=== PATIENT | male | born 1990 | race Caucasian/White ===

== ENCOUNTER 2016-12-04 02:45 | Emergency (ER) | payer OTHER ==
[~2016-12-04] VITALS: Ht 172.7 cm; Wt 59.0 kg
[~2016-12-04 02:45] MED LIST: BACTRIM,SEPT1 TABLET PO; FLOMAX0.4 MG PO; NO HOME MEDS; NOHOMEMEDS; PERCOCET 5/31 TABLET PO
[2016-12-04] MEDS ORDERED: AMOXICILLIN500 MG PO (04:09)
[2016-12-04] MEDS ORDERED: NAPROSYN500 MG PO (04:09)
[2016-12-04 04:48] VITALS: BP 138/86
[2016-12-05] MEDS ORDERED: ZOFRAN ODT4 MG PO (22:30)
[2016-12-05] MEDS ORDERED: BENTYL20 MG PO (22:31)
== END 2016-12-04 04:49 | disposition home or self-care (01) ==
LOC: EME 02:45
DX: J02.9 Acute pharyngitis, unspecified (principal); K08.89 Other specified disorders of teeth and supporting structures; R21 Rash and other nonspecific skin eruption; F17.200 Nicotine dependence, unspecified, uncomplicated; Z71.6 Tobacco abuse counseling
CPT/HCPCS: 87651 90; 99281; 99283

== ENCOUNTER 2016-12-05 17:40 | Emergency (ER) | payer OTHER ==
[~2016-12-05] VITALS: Ht 172.7 cm; Wt 58.2 kg
[~2016-12-05 17:40] MED LIST changes: +AMOXICILLIN500 MG PO; +NAPROSYN500 MG PO
[2016-12-05 18:46] LABS: ADD MIUA? YES; BILIRUBIN SMALL; BLOOD SMALL; COLOR AMBER ((YELLOW)); GLUCOSE (STRIP) NEGATIVE; KETONES 5; LEUKOCYTES NEGATIVE; NITRITE NEGATIVE; PROTEIN (STRIP) 100; SPECIFIC GRAVITY 1.035 (1.000-1.030)
[2016-12-05 19:07] LABS: BACTERIA RARE /HPF; EPITHELIAL CELLS NONE SEEN /HPF; MUCUS 1+ /LPF; UCUL ADDED? NO; WHITE BLOOD CELLS NONE SEEN /HPF (0-5)
[2016-12-05 20:08] LABS: HEMATOCRIT 42.2 % (38.0-50.0); MCH 29.9 PG (29.0-34.0); MCHC 33.9 G/DL (30.0-36.0); MCV 88.1 FL (86-99); MEAN PLAT.VOLUME 9.5 uM^3 (9.0-12.4); PLATELET COUNT 150 K/uL (156-360); RBC DIS.WIDTH-CV 12.6 % (11.8-14.6); RED BLOOD COUNT 4.79 M/uL (4.00-5.50); WHITE BLOOD COUNT 12.5 K/uL (4.1-10.2)
[2016-12-05 20:23] LABS: CHLORIDE 102 mEq/L (99-109); POTASSIUM 3.2 mEq/L (3.7-5.4); SODIUM 137 mEq/L (136-147)
[2016-12-05 20:24] LABS: GLUCOSE 117 mg/dL (70-99)
[2016-12-05 20:26] LABS: ANION GAP 8 MEQ/L (2-14)
[2016-12-05 20:28] LABS: GFR ESTIMATE (CALCULATED) > 59 mL/min/
[2016-12-05 20:29] LABS: UREA NITROGEN (BUN) 14 mg/dL (9-23)
[2016-12-05 20:39] LABS: ADD MEDTOX COMMENT Y; AMPHETAMINE NEGATIVE (500 ng/mL); BARBITURATES NEGATIVE (200 ng/mL); BENZODIAZEPINES NEGATIVE (150 ng/mL); COCAINE NEGATIVE (150 ng/mL); INTERNAL CONTROLS VALID? YES; METHADONE NEGATIVE (200 ng/mL); METHAMPHETAMINE NEGATIVE (500 ng/mL); OPIATES (MORPHINE) NEGATIVE (100 ng/mL); OXYCODONE NEGATIVE (100 ng/mL); PHENCYCLIDINE PRESUMPTIVE POSITIVE (25 ng/mL); PROPOXYPHENE NEGATIVE (300 ng/mL); THC CANNABINOIDS PRESUMPTIVE POSITIVE (50 ng/mL); TRICYCLIC ANTIDEPRESSANTS NEGATIVE (300 ng/mL)
[2016-12-05] MEDS ORDERED: ZOFRAN ODT4 MG PO (22:30)
[2016-12-05] MEDS ORDERED: BENTYL20 MG PO (22:31)
[2016-12-05 22:56] VITALS: BP 135/88
== END 2016-12-05 22:56 | disposition home or self-care (01) ==
LOC: EME 17:40
DX: R11.2 Nausea with vomiting, unspecified (principal); E86.0 Dehydration; R10.30 Lower abdominal pain, unspecified; L23.7 Allergic contact dermatitis due to plants, except food; K04.7 Periapical abscess without sinus; F12.90 Cannabis use, unspecified, uncomplicated; F16.90 Hallucinogen use, unspecified, uncomplicated; F17.200 Nicotine dependence, unspecified, uncomplicated; Z87.442 Personal history of urinary calculi
CPT/HCPCS: 80048; 81003; 84999; 85027; 87651 90; 99281; 99285; J2405; J7030

== ENCOUNTER 2017-01-04 17:29 | Emergency (ER) | payer OTHER ==
[~2017-01-04] VITALS: Ht 172.7 cm; Wt 54.7 kg
[~2017-01-04 17:29] MED LIST changes: +BENTYL20 MG PO; +ZOFRAN ODT4 MG PO
[2017-01-04 19:07] LABS: HEMATOCRIT 41.2 % (38.0-50.0); MCH 30.3 PG (29.0-34.0); MCV 86.7 FL (86-99); MEAN PLAT.VOLUME 9.6 uM^3 (9.0-12.4); PLATELET COUNT 168 K/uL (156-360); RBC DIS.WIDTH-CV 13.1 % (11.8-14.6); RBC DIS.WIDTH-SD 41.3 % (39-53); RED BLOOD COUNT 4.75 M/uL (4.00-5.50); WHITE BLOOD COUNT 6.7 K/uL (4.1-10.2)
[2017-01-04 19:15] LABS: CHLORIDE 106 mEq/L (99-109); POTASSIUM 3.3 mEq/L (3.7-5.4); SODIUM 140 mEq/L (136-147)
[2017-01-04 19:17] LABS: GLUCOSE 98 mg/dL (70-99)
[2017-01-04 19:18] LABS: ANION GAP 9 MEQ/L (2-14)
[2017-01-04 19:20] LABS: SERUM ETHYL ALCOHOL < 10 mg/dL
[2017-01-04 19:21] LABS: GFR ESTIMATE (CALCULATED) > 59 mL/min/
[2017-01-04 19:22] LABS: UREA NITROGEN (BUN) 10 mg/dL (9-23)
[2017-01-04 19:24] LABS: CREATINE KINASE 838 IU/L (1-294); TOTAL CK 838 IU/L (1-294)
[2017-01-04 19:30] LABS: CK-MB 5.6 ng/mL (0.0-4.9)
[2017-01-04 19:49] VITALS: BP 122/87
== END 2017-01-04 19:50 | disposition home or self-care (01) ==
LOC: EME 17:29
PROVIDERS: Emergency Medicine
PROC: 3E0234Z Introduction of Serum, Toxoid and Vaccine into Muscle, Percutaneous Approach (ICD-10-PCS; principal; 2017-01-04)
DX: E86.0 Dehydration (principal); S20.419A Abrasion of unspecified back wall of thorax, initial encounter; X99.1XXA Assault by knife, initial encounter; Z23 Encounter for immunization; Z86.14 Personal history of Methicillin resistant Staphylococcus aureus infection; Z87.442 Personal history of urinary calculi; F17.200 Nicotine dependence, unspecified, uncomplicated
CPT/HCPCS: 71020; 80048; 82550; 82553; 85027; 93005; 99281; 99284; G0480; J7030

== ENCOUNTER 2017-01-22 13:25 | Emergency (ER) | payer OTHER ==
[~2017-01-22] VITALS: Ht 167.6 cm; Wt 55.9 kg
[2017-01-22 17:19] VITALS: BP 136/96
== END 2017-01-22 17:19 | disposition home or self-care (01) ==
LOC: EME 13:25
DX: F16.10 Hallucinogen abuse, uncomplicated (principal); F17.200 Nicotine dependence, unspecified, uncomplicated; Z87.442 Personal history of urinary calculi; Z86.14 Personal history of Methicillin resistant Staphylococcus aureus infection

== ENCOUNTER 2017-01-25 01:29 | Emergency (ER) | payer OTHER ==
[~2017-01-25] VITALS: Ht 172.7 cm; Wt 56.3 kg
[2017-01-25] MEDS ORDERED: PREDNISONE50 MG PO (02:46)
[2017-01-25] MEDS ORDERED: HYCODAN SYRUP480 ML PO (02:46)
[2017-01-25 02:54] VITALS: BP 133/79
== END 2017-01-25 02:57 | disposition home or self-care (01) ==
LOC: EME 01:29
DX: J02.9 Acute pharyngitis, unspecified (principal); R07.9 Chest pain, unspecified; R06.02 Shortness of breath; F17.200 Nicotine dependence, unspecified, uncomplicated
CPT/HCPCS: 71020; 94640; 99281; 99283; J7512

== ENCOUNTER 2017-02-27 18:03 | Emergency (ER) | payer OTHER ==
[~2017-02-27] VITALS: Ht 182.9 cm; Wt 56.1 kg
[~2017-02-27 18:03] MED LIST changes: +HYCODAN SYRUP480 ML PO; +PREDNISONE50 MG PO
[2017-02-27 19:02] LABS: EOSINOPHIL (%) 0.4 % (0-5); HEMATOCRIT 47.2 % (38.0-50.0); IMMATURE GRANULOCYTE (%) 0.4 % (0.0-0.7); INSTRUMENT ABS NEUTROPHIL CT 7.6 K/uL; LYMPHOCYTE COUNT 1.8 K/uL (1.0-2.8); MCHC 34.1 G/DL (30.0-36.0); MCV 87.9 FL (86-99); MEAN PLAT.VOLUME 9.6 uM^3 (9.0-12.4); MONOCYTE (%) 7.1 % (3-12); MONOCYTE COUNT 0.7 K/uL (0-0.8); NEUTROPHIL COUNT 7.6 K/uL (1.8-6.4); PLATELET COUNT 212 K/uL (156-360); RBC DIS.WIDTH-CV 13.5 % (11.8-14.6); RBC DIS.WIDTH-SD 43.4 % (39-53); RED BLOOD COUNT 5.37 M/uL (4.00-5.50); WHITE BLOOD COUNT 10.3 K/uL (4.1-10.2)
[2017-02-27 19:21] LABS: CHLORIDE 105 mEq/L (99-109); POTASSIUM 3.6 mEq/L (3.7-5.4); SODIUM 141 mEq/L (136-147)
[2017-02-27 19:24] LABS: GLUCOSE 98 mg/dL (70-99)
[2017-02-27 19:25] LABS: ANION GAP 9 MEQ/L (2-14); TOTAL BILIRUBIN 0.5 mg/dL (0.0-1.0)
[2017-02-27 19:26] LABS: SERUM ETHYL ALCOHOL < 10 mg/dL
[2017-02-27 19:27] LABS: ALKALINE PHOSPHATASE 45 IU/L (3-129); GFR ESTIMATE (CALCULATED) > 59 mL/min/
[2017-02-27 19:28] LABS: UREA NITROGEN (BUN) 8 mg/dL (9-23)
[2017-02-27 19:30] LABS: CREATINE KINASE 419 IU/L (1-294); TOTAL CK 419 IU/L (1-294)
[2017-02-27 19:30] LABS: ADD MEDTOX COMMENT Y; AMPHETAMINE PRESUMPTIVE POSITIVE (500 ng/mL); BARBITURATES NEGATIVE (200 ng/mL); BENZODIAZEPINES NEGATIVE (150 ng/mL); COCAINE NEGATIVE (150 ng/mL); INTERNAL CONTROLS VALID? YES; METHADONE NEGATIVE (200 ng/mL); METHAMPHETAMINE NEGATIVE (500 ng/mL); OPIATES (MORPHINE) NEGATIVE (100 ng/mL); OXYCODONE NEGATIVE (100 ng/mL); PHENCYCLIDINE PRESUMPTIVE POSITIVE (25 ng/mL); PROPOXYPHENE NEGATIVE (300 ng/mL); THC CANNABINOIDS PRESUMPTIVE POSITIVE (50 ng/mL); TRICYCLIC ANTIDEPRESSANTS NEGATIVE (300 ng/mL)
[2017-02-27 19:41] LABS: CK-MB 4.5 ng/mL (0.0-4.9)
[2017-02-28 00:10] VITALS: BP 144/89
== END 2017-02-28 00:11 | disposition home or self-care (01) ==
LOC: EME 18:03
PROVIDERS: Emergency Medicine
DX: F19.10 Other psychoactive substance abuse, uncomplicated (principal); S01.81XA Laceration without foreign body of other part of head, initial encounter; Z23 Encounter for immunization; Z86.14 Personal history of Methicillin resistant Staphylococcus aureus infection; Z87.442 Personal history of urinary calculi; F17.200 Nicotine dependence, unspecified, uncomplicated
CPT/HCPCS: 70450; 80053; 82550; 82553; 84999; 85025; 99281; 99285; G0480; J2060

== ENCOUNTER 2017-03-14 19:35 | Emergency (ER) | payer OTHER ==
[~2017-03-14] VITALS: Ht 172.7 cm; Wt 53.5 kg
[2017-03-15 02:40] VITALS: BP 128/88
== END 2017-03-15 02:40 | disposition home or self-care (01) ==
LOC: EXP 19:35 → EME 19:35 → EXP 03-15 02:40
DX: S02.2XXA Fracture of nasal bones, initial encounter for closed fracture (principal); S20.219A Contusion of unspecified front wall of thorax, initial encounter; S00.81XA Abrasion of other part of head, initial encounter; S00.511A Abrasion of lip, initial encounter; Y00.XXXA Assault by blunt object, initial encounter; F12.90 Cannabis use, unspecified, uncomplicated; F17.200 Nicotine dependence, unspecified, uncomplicated; Z88.1 Allergy status to other antibiotic agents
CPT/HCPCS: 70450; 70486; 71020; 99281; 99284

== ENCOUNTER 2017-05-22 08:38 | Emergency (ER) | payer OTHER ==
[~2017-05-22] VITALS: Ht 172.7 cm; Wt 58.2 kg
[2017-05-22 10:02] LABS: BASOPHIL COUNT 0.1 K/uL (0-0.1); EOSINOPHIL (%) 2.6 % (0-5); EOSINOPHIL COUNT 0.2 K/uL (0-0.3); HEMATOCRIT 41.8 % (38.0-50.0); IMMATURE GRANULOCYTE (%) 0.7 % (0.0-0.7); IMMATURE GRANULOCYTE COUNT 0.1 K/uL; INSTRUMENT ABS NEUTROPHIL CT 6.6 K/uL; LYMPHOCYTE COUNT 1.1 K/uL (1.0-2.8); MCH 30.8 PG (29.0-34.0); MCHC 34.2 G/DL (30.0-36.0); MCV 90.1 FL (86-99); MEAN PLAT.VOLUME 9.5 uM^3 (9.0-12.4); MONOCYTE (%) 5.7 % (3-12); MONOCYTE COUNT 0.5 K/uL (0-0.8); NEUTROPHIL (%) 77.4 % (45-76); NEUTROPHIL COUNT 6.6 K/uL (1.8-6.4); PLATELET COUNT 170 K/uL (156-360); RBC DIS.WIDTH-CV 12.8 % (11.8-14.6); RBC DIS.WIDTH-SD 42.2 % (39-53); RED BLOOD COUNT 4.64 M/uL (4.00-5.50); WHITE BLOOD COUNT 8.5 K/uL (4.1-10.2)
[2017-05-22 10:12] LABS: CHLORIDE 109 mEq/L (99-109); POTASSIUM 3.6 mEq/L (3.7-5.4); SODIUM 143 mEq/L (136-147)
[2017-05-22 10:14] LABS: GLUCOSE 85 mg/dL (70-99)
[2017-05-22 10:15] LABS: ANION GAP 9 MEQ/L (2-14)
[2017-05-22 10:17] LABS: SERUM ETHYL ALCOHOL < 10 mg/dL
[2017-05-22 10:18] LABS: GFR ESTIMATE (CALCULATED) > 59 mL/min/ (58.99-99999); UREA NITROGEN (BUN) 11 mg/dL (9-23)
[2017-05-22 13:54] VITALS: BP 138/93
== END 2017-05-22 13:57 | disposition home or self-care (01) ==
LOC: EME 08:38
PROVIDERS: Emergency Medicine
DX: F16.10 Hallucinogen abuse, uncomplicated (principal); Z87.442 Personal history of urinary calculi; Z88.1 Allergy status to other antibiotic agents; F17.200 Nicotine dependence, unspecified, uncomplicated
CPT/HCPCS: 80048; 81003; 85025; G0480

== ENCOUNTER 2017-05-22 17:52 | Emergency (ER) | payer OTHER ==
[~2017-05-22] VITALS: Ht 167.6 cm; Wt 63.8 kg
[2017-05-22 19:34] LABS: HEMATOCRIT 44.4 % (38.0-50.0); MCH 31.1 PG (29.0-34.0); MCHC 34.2 G/DL (30.0-36.0); MCV 90.8 FL (86-99); MEAN PLAT.VOLUME 9.8 uM^3 (9.0-12.4); PLATELET COUNT 185 K/uL (156-360); RBC DIS.WIDTH-CV 12.9 % (11.8-14.6); RBC DIS.WIDTH-SD 42.8 % (39-53); RED BLOOD COUNT 4.89 M/uL (4.00-5.50); WHITE BLOOD COUNT 7.4 K/uL (4.1-10.2)
[2017-05-22 19:43] LABS: CHLORIDE 109 mEq/L (99-109); POTASSIUM 4.1 mEq/L (3.7-5.4); SODIUM 144 mEq/L (136-147)
[2017-05-22 19:48] LABS: ANION GAP 9 MEQ/L (2-14); GFR ESTIMATE (CALCULATED) > 59 mL/min/ (58.99-99999)
[2017-05-22 19:49] LABS: UREA NITROGEN (BUN) 12 mg/dL (9-23)
[2017-05-22 19:50] LABS: GLUCOSE 109 mg/dL (70-99)
[2017-05-22 19:55] LABS: TROP-I INTERPRETATION NEGATIVE; TROPONIN-I < 0.01 ng/mL (0.0-0.30)
[2017-05-22 19:59] LABS: SERUM ETHYL ALCOHOL < 10 mg/dL
[2017-05-22 22:35] VITALS: BP 146/95
== END 2017-05-22 22:40 | disposition home or self-care (01) ==
LOC: EME 17:52
PROVIDERS: Nurse Practitioner Family
DX: F19.10 Other psychoactive substance abuse, uncomplicated (principal); F12.90 Cannabis use, unspecified, uncomplicated; R41.82 Altered mental status, unspecified; F17.200 Nicotine dependence, unspecified, uncomplicated; Z88.1 Allergy status to other antibiotic agents
CPT/HCPCS: 70450; 80048 91; 84484; 85027; 90832; 93005; G0480

== ENCOUNTER 2017-05-24 11:29 | Emergency (ER) | payer OTHER ==
[~2017-05-24] VITALS: Ht 172.7 cm; Wt 53.8 kg
[2017-05-24 13:10] VITALS: BP 144/97
== END 2017-05-24 13:11 | disposition home or self-care (01) ==
LOC: EME 11:29
DX: F32.9 Major depressive disorder, single episode, unspecified (principal); F12.10 Cannabis abuse, uncomplicated; F16.10 Hallucinogen abuse, uncomplicated; F17.200 Nicotine dependence, unspecified, uncomplicated; Z87.442 Personal history of urinary calculi; Z88.1 Allergy status to other antibiotic agents
CPT/HCPCS: 90837; 99281; 99285

== ENCOUNTER 2017-07-26 16:52 | Emergency (ER) | payer OTHER ==
[~2017-07-26] VITALS: Ht 172.7 cm; Wt 64.3 kg
[2017-07-26 17:55] VITALS: BP 141/91
== END 2017-07-26 17:56 | disposition home or self-care (01) ==
LOC: EME 16:52
DX: F16.10 Hallucinogen abuse, uncomplicated (principal); F17.200 Nicotine dependence, unspecified, uncomplicated; Z88.1 Allergy status to other antibiotic agents
CPT/HCPCS: 99281; 99283

== ENCOUNTER 2017-11-06 02:06 | Emergency (ER) | payer OTHER ==
[~2017-11-06] VITALS: Ht 172.7 cm; Wt 59.8 kg
[2017-11-06 02:32] LABS: HEMATOCRIT 41.5 % (38.0-50.0); HEMOGLOBIN 14.9 G/DL (12.5-16.6); MCH 31.6 PG (29.0-34.0); MCHC 35.9 G/DL (30.0-36.0); MCV 88.1 FL (86-99); PLATELET COUNT 174 K/uL (156-360); RBC DIS.WIDTH-CV 11.9 % (11.8-14.6); RBC DIS.WIDTH-SD 38.3 % (39-53); RED BLOOD COUNT 4.71 M/uL (4.00-5.50); WHITE BLOOD COUNT 6.3 K/uL (4.1-10.2)
[2017-11-06 02:42] LABS: CHLORIDE 104 mEq/L (99-109); POTASSIUM 3.8 mEq/L (3.7-5.4); SODIUM 140 mEq/L (136-147)
[2017-11-06 02:43] LABS: GLUCOSE 106 mg/dL (70-99)
[2017-11-06 02:47] LABS: CREATININE 0.9 mg/dL (0.6-1.3); GFR ESTIMATE (CALCULATED) > 59 mL/min/ (58.99-99999)
[2017-11-06 02:48] LABS: UREA NITROGEN (BUN) 15 mg/dL (9-23)
[2017-11-06] MEDS ORDERED: VENTOLIN HFA18 GM IH (04:40)
[2017-11-06] MEDS ORDERED: TESSALON200 MG PO (04:40)
[2017-11-06] MEDS ORDERED: MEDROL DOSEPAK4 MG PO (04:40)
[2017-11-06 05:35] VITALS: BP 120/72
== END 2017-11-06 05:52 | disposition home or self-care (01) ==
LOC: EME 02:06
DX: J06.9 Acute upper respiratory infection, unspecified (principal); J98.01 Acute bronchospasm; F17.200 Nicotine dependence, unspecified, uncomplicated; Z86.14 Personal history of Methicillin resistant Staphylococcus aureus infection; Z88.1 Allergy status to other antibiotic agents; Z87.442 Personal history of urinary calculi
CPT/HCPCS: 71046; 80048; 85027; 94640; 94664; 99281; 99284; J7512

== ENCOUNTER 2017-12-03 05:23 | Emergency (ER) | payer OTHER ==
[~2017-12-03] VITALS: Ht 175.3 cm; Wt 61.8 kg
[~2017-12-03 05:23] MED LIST changes: +MEDROL DOSEPAK4 MG PO; +TESSALON200 MG PO; +VENTOLIN HFA18 GM IH
[2017-12-03 06:08] LABS: HEMATOCRIT 43.9 % (38.0-50.0); HEMOGLOBIN 15.3 G/DL (12.5-16.6); MCHC 34.9 G/DL (30.0-36.0); MCV 88.9 FL (86-99); PLATELET COUNT 204 K/uL (156-360); RBC DIS.WIDTH-CV 12.7 % (11.8-14.6); RBC DIS.WIDTH-SD 41.4 % (39-53); RED BLOOD COUNT 4.94 M/uL (4.00-5.50); WHITE BLOOD COUNT 9.8 K/uL (4.1-10.2)
[2017-12-03 06:30] LABS: CHLORIDE 104 mEq/L (99-109); POTASSIUM 3.9 mEq/L (3.7-5.4); SODIUM 142 mEq/L (136-147)
[2017-12-03 06:32] LABS: GLUCOSE 109 mg/dL (70-99)
[2017-12-03 06:36] LABS: CREATININE 1.1 mg/dL (0.6-1.3); GFR ESTIMATE (CALCULATED) > 59 mL/min/ (58.99-99999)
[2017-12-03 06:37] LABS: UREA NITROGEN (BUN) 14 mg/dL (9-23)
[2017-12-03 06:41] LABS: SERUM ETHYL ALCOHOL < 10 mg/dL
[2017-12-03] MEDS ORDERED: MOTRIN600 MG PO (11:45)
[2017-12-03] MEDS ORDERED: AUGMENTIN875 MG PO (11:46)
[2017-12-03 12:11] VITALS: BP 105/72
[2017-12-04] MEDS ORDERED: FLEXERIL10 MG PO (14:01)
[2017-12-04] MEDS ORDERED: PROVENTIL HFA6.7 GM IH (14:01)
[2017-12-04] MEDS ORDERED: AUGMENTIN875 MG PO (14:01)
== END 2017-12-03 12:00 | disposition home or self-care (01) ==
LOC: EME → EDBD 05:23 → EME 05:23
PROVIDERS: Emergency Medicine
PROC: 0HQGXZZ Repair Left Hand Skin, External Approach (ICD-10-PCS; principal; 2017-12-03)
DX: S00.83XA Contusion of other part of head, initial encounter (principal); S61.217A Laceration without foreign body of left little finger without damage to nail, initial encounter; S30.810A Abrasion of lower back and pelvis, initial encounter; Y04.2XXA Assault by strike against or bumped into by another person, initial encounter; F17.200 Nicotine dependence, unspecified, uncomplicated; Z88.1 Allergy status to other antibiotic agents
CPT/HCPCS: 70450; 70486; 71260; 72125; 74177; 80048; 85027; 99281; 99285; G0480; J7030

== ENCOUNTER 2017-12-04 12:04 | Emergency (ER) | payer OTHER ==
[~2017-12-04] VITALS: Ht 175.3 cm; Wt 54.6 kg
[~2017-12-04 12:04] MED LIST changes: +AUGMENTIN875 MG PO; +MOTRIN600 MG PO
[2017-12-04] MEDS ORDERED: FLEXERIL10 MG PO (14:01)
[2017-12-04] MEDS ORDERED: PROVENTIL HFA6.7 GM IH (14:01)
[2017-12-04] MEDS ORDERED: AUGMENTIN875 MG PO (14:01)
[2017-12-04 14:21] VITALS: BP 120/68
== END 2017-12-04 14:23 | disposition home or self-care (01) ==
LOC: EME 12:04
DX: R07.81 Pleurodynia (principal); S20.219A Contusion of unspecified front wall of thorax, initial encounter; S60.512A Abrasion of left hand, initial encounter; S00.81XA Abrasion of other part of head, initial encounter; Y04.8XXA Assault by other bodily force, initial encounter; F17.200 Nicotine dependence, unspecified, uncomplicated; Z87.442 Personal history of urinary calculi; Z86.14 Personal history of Methicillin resistant Staphylococcus aureus infection; Z88.1 Allergy status to other antibiotic agents
CPT/HCPCS: 99281; 99283

== ENCOUNTER 2017-12-05 04:21 | Emergency (ER) | payer OTHER ==
[~2017-12-05] VITALS: Ht 175.3 cm; Wt 55.5 kg
[~2017-12-05 04:21] MED LIST changes: +FLEXERIL10 MG PO; +PROVENTIL HFA6.7 GM IH
[2017-12-05 06:31] VITALS: BP 120/78
== END 2017-12-05 06:32 | disposition home or self-care (01) ==
LOC: EME → EDBD 04:21 → EME 04:21
DX: S20.219A Contusion of unspecified front wall of thorax, initial encounter (principal); Y04.2XXA Assault by strike against or bumped into by another person, initial encounter; F17.200 Nicotine dependence, unspecified, uncomplicated; Z86.14 Personal history of Methicillin resistant Staphylococcus aureus infection; Z87.442 Personal history of urinary calculi; Z88.1 Allergy status to other antibiotic agents
CPT/HCPCS: 71046; 99281; 99284